=== PATIENT | female | born 1955 | race Caucasian/White ===

== ENCOUNTER → 2017-12-09 | Outpatient (CLI) | payer OTHER | END | disposition home or self-care (01) | LOC: PETCFH 08:13 | PROVIDERS: ATTEND Internal Medicine Gastroenterology | DX: K30 Functional dyspepsia (principal); K21.9 Gastro-esophageal reflux disease without esophagitis; K90.89 Other intestinal malabsorption; K22.70 Barrett's esophagus without dysplasia; D80.2 Selective deficiency of immunoglobulin A [IgA]; R73.02 Impaired glucose tolerance (oral); E55.9 Vitamin D deficiency, unspecified; Z92.83 Personal history of failed moderate sedation; Z80.9 Family history of malignant neoplasm, unspecified | CPT/HCPCS: 78264; A9541 ==

== ENCOUNTER 2019-04-27 12:06 | Outpatient (CLI) | payer OTHER | END 2019-04-27 23:59 | disposition home or self-care (01) | LOC: CFH 12:06 | PROVIDERS: ATTEND Family Medicine | DX: R07.89 Other chest pain (principal) | CPT/HCPCS: 78452; 93017; A9502; J2785 ==

== ENCOUNTER 2019-05-17 14:01 | Outpatient (CLI) | payer OTHER | END 2019-05-17 23:59 | disposition home or self-care (01) | LOC: CFH 14:01 | PROVIDERS: ATTEND Family Medicine | DX: E78.2 Mixed hyperlipidemia (principal); R07.89 Other chest pain | CPT/HCPCS: 75571 ==

== ENCOUNTER → 2021-01-21 | Outpatient (CLI) | payer OTHER ==
[~2021-01-21] MED LIST: LIDOCAINE 1%, 10ML ONE
== END | disposition home or self-care (01) ==
LOC: RAD 12:23
PROVIDERS: ATTEND Family Medicine
DX: E04.1 Nontoxic single thyroid nodule (principal)
CPT/HCPCS: 10005; 88172; 88173; J3490